=== PATIENT | male | born 1975 | race Caucasian/White ===

== ENCOUNTER 2020-02-06 00:02 | Emergency (ER) | payer OTHER ==
[~2020-02-06] VITALS: Ht 172.7 cm; Wt 80.9 kg
[2020-02-06 00:37] LABS: HEMATOCRIT 49.7 % (42.0-52.0); HEMOGLOBIN 17.2 g/dl (13.5-17.5); MEAN CORPUSCULAR HEMOGLOBIN 32.8 pg (27.0-33.0); MEAN CORPUSCULAR HGB CONC 34.6 g/dl (32.0-36.5); MEAN CORPUSCULAR VOLUME 94.7 fl (80.0-96.0); PLATELET COUNT, AUTOMATED 324 10^3/uL (150-450); RED BLOOD COUNT 5.25 10^6/uL (4.30-6.10); WHITE BLOOD COUNT 10.1 10^3/uL (4.0-10.0)
[2020-02-06 00:57] LABS: AMPHETAMINES LEVEL URINE NEGATIVE (NEGATIVE); BARBITURATES URINE POSITIVE (NEGATIVE); BENZODIAZEPINES URINE NEGATIVE (NEGATIVE); CANNABINOIDS URINE POSITIVE (NEGATIVE); COCAINE METABOLITE URINE NEGATIVE (NEGATIVE); METHADONE URINE NEGATIVE (NEGATIVE); OPIATES URINE NEGATIVE (NEGATIVE); PHENCYCLIDINE URINE NEGATIVE (NEGATIVE)
[2020-02-06 01:22] LABS: ACETAMINOPHEN LEVEL < 2.0 UG/ML (10.0-30.0); ALT/SGPT 27 U/L (12-78); BILIRUBIN,DIRECT 0.1 MG/DL (0.0-0.2); BILIRUBIN,TOTAL 0.3 MG/DL (0.2-1.0); BLOOD UREA NITROGEN 15 MG/DL (7-18); CALCIUM LEVEL 8.6 MG/DL (8.5-10.1); CARBON DIOXIDE LEVEL 20 MEQ/L (21-32); CHLORIDE LEVEL 104 MEQ/L (98-107); CREATININE FOR GFR 0.81 MG/DL (0.70-1.30); ETHYL ALCOHOL (ETHANOL) 0.176 % (0.000-0.010); GLOMERULAR FILTRATION RATE > 60.0 (>60); GLUCOSE, FASTING 86 MG/DL (70-100); POTASSIUM SERUM 3.9 MEQ/L (3.5-5.1); SALICYLATE LEVEL 7.9 MG/DL (5.0-30.0); SODIUM LEVEL 135 MEQ/L (136-145); TOTAL PROTEIN 7.6 GM/DL (6.4-8.2)
[2020-02-06] MEDS ORDERED: METAL LOCK LOOP XX ONE (04:24)
[2020-02-06 06:18] VITALS: BP 124/81
== END 2020-02-06 06:20 | disposition home or self-care (01) ==
LOC: M ED 00:02
DX: F10.129 Alcohol abuse with intoxication, unspecified (principal); F12.10 Cannabis abuse, uncomplicated; F17.218 Nicotine dependence, cigarettes, with other nicotine-induced disorders
CPT/HCPCS: 80048; 80076; 80307; 84443; 85027; 99283; G0480

== ENCOUNTER 2022-03-11 23:18 | Emergency (ER) | payer OTHER ==
[~2022-03-11] VITALS: Ht 172.7 cm; Wt 77.3 kg
[2022-03-11 23:53] LABS: HEMATOCRIT 46.5 % (42.0-52.0); HEMOGLOBIN 15.5 g/dl (13.5-17.5); MEAN CORPUSCULAR HEMOGLOBIN 32.2 pg (27.0-33.0); MEAN CORPUSCULAR HGB CONC 33.3 g/dl (32.0-36.5); MEAN CORPUSCULAR VOLUME 96.7 fl (80.0-96.0); PLATELET COUNT, AUTOMATED 383 10^3/uL (150-450); RED BLOOD COUNT 4.81 10^6/uL (4.30-6.10); WHITE BLOOD COUNT 11.4 10^3/uL (4.0-10.0)
[2022-03-12] MEDS ORDERED: LORazepam 2 MG/ML VIAL As Ordered ONE ×2 (00:14→21:05)
[2022-03-12] MEDS ORDERED: diphenhydrAMINE 50MG/ML VIAL (J1200) As Ordered ONE (00:14)
[2022-03-12] MEDS ORDERED: HALOPERIDOL 5MG/ML VIAL (J1630 PER 1) As Ordered ONE (00:15)
[2022-03-12] MEDS ORDERED: LORazepam 2 MG/ML VIAL IM ONE (00:15)
[2022-03-12] MEDS ORDERED: OLANZapine INTRAMUSCULAR 10MG VIAL IM ONE (00:15)
[2022-03-12] MEDS ORDERED: diphenhydrAMINE 50MG/ML VIAL (J1200) IM STA (00:21)
[2022-03-12] MEDS ORDERED: HALOPERIDOL 5MG/ML VIAL (J1630 PER 1) IM STA (00:21)
[2022-03-12 00:29] LABS: ALT/SGPT 24 U/L (12-78); BILIRUBIN,DIRECT 0.2 MG/DL (0.0-0.2); BILIRUBIN,TOTAL 0.4 MG/DL (0.2-1.0); BLOOD UREA NITROGEN 8 MG/DL (7-18); CARBON DIOXIDE LEVEL 22 MEQ/L (21-32); CHLORIDE LEVEL 106 MEQ/L (98-107); CREATININE FOR GFR 0.93 MG/DL (0.70-1.30); ETHYL ALCOHOL (ETHANOL) 0.205 % (0.000-0.010); GLOMERULAR FILTRATION RATE > 60.0 (>60); GLUCOSE, FASTING 75 MG/DL (70-100); SALICYLATE LEVEL 3.8 MG/DL (5.0-30.0); SODIUM LEVEL 139 MEQ/L (136-145); TOTAL PROTEIN 7.6 GM/DL (6.4-8.2)
[2022-03-12 00:33] LABS: RSV AMPLIFICATION NEGATIVE (NEGATIVE)
[2022-03-12] MEDS ORDERED: LORazepam 2 MG/ML VIAL IV STA (01:13)
[2022-03-12] MEDS ORDERED: LORazepam 2 MG/ML VIAL IM STA ×2 (01:17→21:06)
[2022-03-12 01:40] LABS: ACETAMINOPHEN LEVEL < 2.0 UG/ML (10.0-30.0)
[2022-03-12 11:27] LABS: AMPHETAMINES LEVEL URINE POSITIVE (NEGATIVE); BARBITURATES URINE NEGATIVE (NEGATIVE); BENZODIAZEPINES URINE NEGATIVE (NEGATIVE); CANNABINOIDS URINE POSITIVE (NEGATIVE); COCAINE METABOLITE URINE NEGATIVE (NEGATIVE); METHADONE URINE NEGATIVE (NEGATIVE); OPIATES URINE NEGATIVE (NEGATIVE); PHENCYCLIDINE URINE NEGATIVE (NEGATIVE)
[2022-03-13 12:12] VITALS: BP 123/82
== END 2022-03-13 12:29 | disposition home or self-care (01) ==
LOC: M ED 23:18
DX: F43.9 Reaction to severe stress, unspecified (principal); R45.851 Suicidal ideations; Z63.0 Problems in relationship with spouse or partner
CPT/HCPCS: 80048; 80076; 80143; 80307; 82077; 84443; 85027; 87631; 93005; 96372; 99285; J1200; J1630; J2060

== ENCOUNTER 2022-03-13 18:25 | Inpatient (IN) | payer MEDICAID, OTHER ==
[~2022-03-13] VITALS: Ht 172.7 cm; Wt 77.3 kg
[2022-03-13] MEDS ORDERED: OLANZapine INTRAMUSCULAR 10MG VIAL IM ONE (19:40)
[2022-03-13] MEDS ORDERED: LORazepam 2 MG/ML VIAL IM ONE (19:40)
[2022-03-13 19:51] LABS: HEMATOCRIT 50.6 % (42.0-52.0); HEMOGLOBIN 16.8 g/dl (13.5-17.5); MEAN CORPUSCULAR HEMOGLOBIN 32.2 pg (27.0-33.0); MEAN CORPUSCULAR HGB CONC 33.2 g/dl (32.0-36.5); MEAN CORPUSCULAR VOLUME 97.1 fl (80.0-96.0); PLATELET COUNT, AUTOMATED 396 10^3/uL (150-450); RED BLOOD COUNT 5.21 10^6/uL (4.30-6.10); WHITE BLOOD COUNT 13.2 10^3/uL (4.0-10.0)
[2022-03-13 20:31] LABS: ACETAMINOPHEN LEVEL < 2.0 UG/ML (10.0-30.0); ALT/SGPT 40 U/L (12-78); BILIRUBIN,DIRECT 0.1 MG/DL (0.0-0.2); BILIRUBIN,TOTAL 0.4 MG/DL (0.2-1.0); BLOOD UREA NITROGEN 19 MG/DL (7-18); CALCIUM LEVEL 9.7 MG/DL (8.5-10.1); CARBON DIOXIDE LEVEL 25 MEQ/L (21-32); CHLORIDE LEVEL 105 MEQ/L (98-107); CREATININE FOR GFR 0.94 MG/DL (0.70-1.30); ETHYL ALCOHOL (ETHANOL) 0.067 % (0.000-0.010); GLOMERULAR FILTRATION RATE > 60.0 (>60); GLUCOSE, FASTING 77 MG/DL (70-100); POTASSIUM SERUM 4.3 MEQ/L (3.5-5.1); SALICYLATE LEVEL 4.5 MG/DL (5.0-30.0); SODIUM LEVEL 140 MEQ/L (136-145); THYROID STIMULATING HORMONE 0.847 uIU/ML (0.358-3.740); TOTAL PROTEIN 7.7 GM/DL (6.4-8.2)
[2022-03-13 20:35] LABS: AMPHETAMINES LEVEL URINE POSITIVE (NEGATIVE); BARBITURATES URINE NEGATIVE (NEGATIVE); BENZODIAZEPINES URINE NEGATIVE (NEGATIVE); CANNABINOIDS URINE POSITIVE (NEGATIVE); COCAINE METABOLITE URINE NEGATIVE (NEGATIVE); METHADONE URINE NEGATIVE (NEGATIVE); OPIATES URINE NEGATIVE (NEGATIVE); PHENCYCLIDINE URINE NEGATIVE (NEGATIVE)
[2022-03-13 21:06] LABS: RSV AMPLIFICATION NEGATIVE (NEGATIVE)
[2022-03-14] MEDS ORDERED: LORazepam 2 MG TAB PO STA (21:08)
[2022-03-15] MEDS ORDERED: HOME MED LIST COMPLETE! XX SCH (11:05)
[2022-03-15] MEDS ORDERED: MOM 30ML SUSPENSION UDC PO PRN (12:35)
[2022-03-15] MEDS ORDERED: ACETAMINOPHEN TAB 650MG DOSE (2X325MG) PO PRN (12:35)
[2022-03-15] MEDS ORDERED: LORazepam 2 MG TAB PO PRN (12:35)
[2022-03-15] MEDS ORDERED: diphenhydrAMINE 25MG CAP PO PRN (12:35)
[2022-03-15] MEDS ORDERED: IBUPROFEN 400MG TAB PO PRN (12:35)
[2022-03-15] MEDS ORDERED: traZODone 50 MG TAB PO PRN (12:35)
[2022-03-15] MEDS ORDERED: LORazepam 1 MG TAB PO PRN (12:35)
[2022-03-15] MEDS ORDERED: MAALOX 30 ML SUSP *UDC PO PRN (12:35)
[2022-03-15 15:01] VITALS: BP 125/78
[2022-03-15] MEDS: THIAMINE 100 MG TAB PO SCH ×2 (15:21→21:19)
[2022-03-15] MEDS: FOLIC ACID 1 MG TAB PO SCH (15:21)
[2022-03-15] MEDS: MULTIVITAMINS/MINERALS THERAP 1 TAB PO SCH (15:21)
[2022-03-15] MEDS: NICOTINE 21MG/24HR 1 EA TRANSDERMAL TD SCH (15:21)
[2022-03-16 06:44] VITALS: BP 103/56
[2022-03-16 06:54] VITALS: BP 103/56
[2022-03-16] MEDS ORDERED: BACITRACIN OINTMENT 30GM TUBE TOP SCH (09:00)
[2022-03-16] MEDS: THIAMINE 100 MG TAB PO SCH (09:23)
[2022-03-16] MEDS: MULTIVITAMINS/MINERALS THERAP 1 TAB PO SCH (09:23)
[2022-03-16] MEDS: NICOTINE 21MG/24HR 1 EA TRANSDERMAL TD SCH (09:23)
[2022-03-16] MEDS: FOLIC ACID 1 MG TAB PO SCH (09:23)
[2022-03-16 14:50] VITALS: BP 122/75
[2022-03-16] MEDS ORDERED: NICO21PAT TD (16:15)
[2022-03-16] MEDS ORDERED: TRAZ-252 PO (16:15)
[2022-03-16 19:00] VITALS: BP 122/78
== END 2022-03-16 18:45 | disposition still patient (30) | DRG 758 ==
LOC: M ED 18:25 → M ED INP 03-15 12:32 → M PSY 03-15 14:26
PROVIDERS: ADMIT Psychiatry & Neurology Psychiatry; ATTEND Student in an Organized Health Care Education/Training Program
DX: F63.9 Impulse disorder, unspecified (principal); F43.20 Adjustment disorder, unspecified; F15.94 Other stimulant use, unspecified with stimulant-induced mood disorder; F17.210 Nicotine dependence, cigarettes, uncomplicated; F60.89 Other specific personality disorders; Z91.82 Personal history of military deployment; S61.511A Laceration without foreign body of right wrist, initial encounter; S61.512A Laceration without foreign body of left wrist, initial encounter; Z91.52 Personal history of nonsuicidal self-harm; W26.0XXA Contact with knife, initial encounter; X78.1XXA Intentional self-harm by knife, initial encounter; Y92.9 Unspecified place or not applicable; Z20.822 Contact with and (suspected) exposure to COVID-19

== ENCOUNTER 2022-05-18 11:31 | Emergency (ER) | payer OTHER ==
[~2022-05-18] VITALS: Ht 172.7 cm; Wt 77.3 kg
[~2022-05-18 11:31] MED LIST: NICO21PAT TD; TRAZ-252 PO
[2022-05-18 11:37] VITALS: BP 139/86
[2022-05-18 12:16] LABS: HEMATOCRIT 44.1 % (42.0-52.0); HEMOGLOBIN 14.7 g/dl (13.5-17.5); MEAN CORPUSCULAR HEMOGLOBIN 31.7 pg (27.0-33.0); MEAN CORPUSCULAR HGB CONC 33.3 g/dl (32.0-36.5); PLATELET COUNT, AUTOMATED 362 10^3/uL (150-450); RED BLOOD COUNT 4.64 10^6/uL (4.30-6.10); WHITE BLOOD COUNT 17.6 10^3/uL (4.0-10.0)
[2022-05-18 13:06] LABS: ACETAMINOPHEN LEVEL < 2.0 UG/ML (10.0-30.0); ALBUMIN 3.7 GM/DL (3.2-5.2); ALT/SGPT 24 U/L (12-78); BILIRUBIN,DIRECT < 0.1 MG/DL (0.0-0.2); BILIRUBIN,TOTAL 0.1 MG/DL (0.2-1.0); BLOOD UREA NITROGEN 13 MG/DL (7-18); CALCIUM LEVEL 8.9 MG/DL (8.5-10.1); CARBON DIOXIDE LEVEL 22 MEQ/L (21-32); CHLORIDE LEVEL 110 MEQ/L (98-107); CREATININE FOR GFR 0.79 MG/DL (0.70-1.30); ETHYL ALCOHOL (ETHANOL) < 0.003 % (0.000-0.010); GLOMERULAR FILTRATION RATE > 60.0 (>60); GLUCOSE, FASTING 117 MG/DL (70-100); POTASSIUM SERUM 4.1 MEQ/L (3.5-5.1); SALICYLATE LEVEL 4.4 MG/DL (5.0-30.0); SODIUM LEVEL 139 MEQ/L (136-145); TOTAL PROTEIN 7.2 GM/DL (6.4-8.2)
[2022-05-18 13:15] LABS: RSV AMPLIFICATION NEGATIVE (NEGATIVE)
[2022-05-18 13:23] LABS: AMPHETAMINES LEVEL URINE NEGATIVE (NEGATIVE); BARBITURATES URINE NEGATIVE (NEGATIVE); BENZODIAZEPINES URINE NEGATIVE (NEGATIVE); CANNABINOIDS URINE POSITIVE (NEGATIVE); COCAINE METABOLITE URINE NEGATIVE (NEGATIVE); METHADONE URINE NEGATIVE (NEGATIVE); OPIATES URINE NEGATIVE (NEGATIVE); PHENCYCLIDINE URINE NEGATIVE (NEGATIVE)
== END 2022-05-18 17:50 | disposition home or self-care (01) ==
LOC: M ED 11:31
DX: F43.9 Reaction to severe stress, unspecified (principal); R45.88 Nonsuicidal self-harm; F17.200 Nicotine dependence, unspecified, uncomplicated

== ENCOUNTER 2022-06-04 16:26 | Emergency (ER) | payer OTHER ==
[2022-06-04 17:31] LABS: HEMATOCRIT 47.6 % (42.0-52.0); MEAN CORPUSCULAR HEMOGLOBIN 32.1 pg (27.0-33.0); MEAN CORPUSCULAR HGB CONC 35.7 g/dl (32.0-36.5); PLATELET COUNT, AUTOMATED 393 10^3/uL (150-450); RED BLOOD COUNT 5.29 10^6/uL (4.30-6.10); WHITE BLOOD COUNT 13.1 10^3/uL (4.0-10.0)
[2022-06-04 17:58] LABS: ACETAMINOPHEN LEVEL < 2.0 UG/ML (10.0-30.0); ALBUMIN 4.2 GM/DL (3.2-5.2); ALT/SGPT 23 U/L (12-78); BILIRUBIN,DIRECT 0.2 MG/DL (0.0-0.2); BILIRUBIN,TOTAL 0.4 MG/DL (0.2-1.0); BLOOD UREA NITROGEN 13 MG/DL (7-18); CALCIUM LEVEL 9.7 MG/DL (8.5-10.1); CARBON DIOXIDE LEVEL 22 MEQ/L (21-32); CHLORIDE LEVEL 105 MEQ/L (98-107); CREATININE FOR GFR 0.95 MG/DL (0.70-1.30); ETHYL ALCOHOL (ETHANOL) < 0.003 % (0.000-0.010); GLOMERULAR FILTRATION RATE > 60.0 (>60); GLUCOSE, FASTING 116 MG/DL (70-100); POTASSIUM SERUM 4.1 MEQ/L (3.5-5.1); SALICYLATE LEVEL 5.1 MG/DL (5.0-30.0); SODIUM LEVEL 136 MEQ/L (136-145); THYROID STIMULATING HORMONE 0.819 uIU/ML (0.358-3.740); TOTAL PROTEIN 7.7 GM/DL (6.4-8.2)
[2022-06-04 18:43] LABS: AMPHETAMINES LEVEL URINE NEGATIVE (NEGATIVE); BARBITURATES URINE NEGATIVE (NEGATIVE); BENZODIAZEPINES URINE NEGATIVE (NEGATIVE); CANNABINOIDS URINE POSITIVE (NEGATIVE); COCAINE METABOLITE URINE NEGATIVE (NEGATIVE); METHADONE URINE NEGATIVE (NEGATIVE); OPIATES URINE NEGATIVE (NEGATIVE); PHENCYCLIDINE URINE NEGATIVE (NEGATIVE)
[2022-06-04 18:49] VITALS: BP 173/115
== END 2022-06-04 18:50 | disposition home or self-care (01) ==
LOC: M ED 16:26
DX: F43.0 Acute stress reaction (principal); F17.200 Nicotine dependence, unspecified, uncomplicated; F19.10 Other psychoactive substance abuse, uncomplicated; Z79.899 Other long term (current) drug therapy

== ENCOUNTER 2022-06-05 18:28 | Emergency (ER) | payer OTHER ==
[~2022-06-05] VITALS: Ht 172.7 cm; Wt 77.3 kg
[2022-06-05 20:37] LABS: BASO % 0.2 % (0.0-1.0); EOS % 0.1 % (0.0-3.0); HEMATOCRIT 54.6 % (42.0-52.0); HEMOGLOBIN 18.2 g/dl (13.5-17.5); LYMPH % 5.1 % (24.0-44.0); MEAN CORPUSCULAR HEMOGLOBIN 30.8 pg (27.0-33.0); MEAN CORPUSCULAR HGB CONC 33.3 g/dl (32.0-36.5); MEAN CORPUSCULAR VOLUME 92.5 fl (80.0-96.0); MONO % 8.1 % (2.0-8.0); NEUTROPHILS # 16.9 10^3/uL (1.5-8.5); NEUTROPHILS % 85.8 % (36.0-66.0); PLATELET COUNT, AUTOMATED 345 10^3/uL (150-450); WHITE BLOOD COUNT 19.7 10^3/uL (4.0-10.0)
[2022-06-05 21:07] LABS: MONO # 1.6 10^3/uL (0.0-0.8)
[2022-06-05] MEDS ORDERED: PANTOPRAZOLE 40MG VIAL IV ONE (21:30)
[2022-06-05] MEDS ORDERED: SUCRALFATE 1 GM TAB PO ONE (21:30)
[2022-06-05] MEDS ORDERED: ONDANSETRON 4MG 2ML VIAL IV ONE (21:30)
[2022-06-05] MEDS ORDERED: GI COCKTAIL 50ML BTL(HYOSCYAMINE/MAALOX/LIDOCAINE VISCOUS)(1:3:1) PO ONE (21:30)
[2022-06-05 21:52] LABS: ALBUMIN 4.6 GM/DL (3.2-5.2); ALT/SGPT 369 U/L (12-78); LIPASE 58 U/L (73-393)
[2022-06-05] MEDS ORDERED: HALOPERIDOL 5MG/ML VIAL (J1630 PER 1) IV ONE (22:50)
[2022-06-05] MEDS ORDERED: ISOVUE-370 76% 100ML VIAL As Ordered ONE (23:40)
[2022-06-05] MEDS ORDERED: NS 1,000 ML IV ONE (23:45)
[2022-06-06] MEDS ORDERED: OMEP40CA4 PO (01:19)
[2022-06-06] MEDS ORDERED: ONDA4TAB6 PO (01:19)
[2022-06-06] MEDS ORDERED: CARA1TAB6 PO (01:19)
[2022-06-06] MEDS ORDERED: HALOPERIDOL 5MG/ML VIAL (J1630 PER 1) IV ONE (02:00)
[2022-06-06 02:51] LABS: ALBUMIN 3.9 GM/DL (3.2-5.2); ALT/SGPT 684 U/L (12-78); BILIRUBIN,TOTAL 1.6 MG/DL (0.2-1.0); BLOOD UREA NITROGEN 21 MG/DL (7-18); CALCIUM LEVEL 9.1 MG/DL (8.5-10.1); CARBON DIOXIDE LEVEL 19 MEQ/L (21-32); CHLORIDE LEVEL 103 MEQ/L (98-107); CREATININE FOR GFR 1.11 MG/DL (0.70-1.30); GLOMERULAR FILTRATION RATE > 60.0 (>60); GLUCOSE, FASTING 143 MG/DL (70-100); POTASSIUM SERUM 4.4 MEQ/L (3.5-5.1); SODIUM LEVEL 137 MEQ/L (136-145); TOTAL PROTEIN 6.9 GM/DL (6.4-8.2)
[2022-06-06 03:55] VITALS: BP 120/58
[2022-06-06] MEDS ORDERED: MAALOX 30 ML SUSP *UDC PO ONE (04:30)
[2022-06-06 13:37] LABS: HEPATITIS B CORE ANTIBODY IGM NEGATIVE (NEGATIVE); HEPATITIS B SURFACE ANTIGEN NEGATIVE (NEGATIVE)
[2022-06-06 13:38] LABS: HEPATITIS C VIRUS ABY INDEX < 0.8 INDEX (<0.8)
== END 2022-06-06 04:56 | disposition home or self-care (01) ==
LOC: M ED 18:28
DX: R11.15 Cyclical vomiting syndrome unrelated to migraine (principal); F17.200 Nicotine dependence, unspecified, uncomplicated; Z79.899 Other long term (current) drug therapy
CPT/HCPCS: 74021; 74177; 76705; 80047; 80053; 80076; 83690; 85025; 86705; 86709; 86803; 87340; 96361; 96374; 96375; 96376; 99284; C9113; J1630; J2405; Q9967